=== PATIENT | female | born 1955 | race Caucasian/White ===

== ENCOUNTER 2016-12-09 07:21 | Inpatient (IN) | payer OTHER ==
--- NOTE | 2016-12-06 10:39 | HP ---
DATE OF CLINIC: 11/27/2016 KAYCEE MUHAMMAD : 1955 PLANNED PROCEDURE: Right Total Knee Arthroplasty DATE OF SURGERY: December 09, 2016 SURGEON: Erlin Darling M.D. PCP: Neda Lin N.P. HISTORY OF PRESENT ILLNESS Kaycee Muhammad is a 61 year old female. * Medication list reviewed with patient allergy list reviewed with patient. Mrs. Muhammad is in today pre-operatively for her upcoming right total knee arthroplasty with Dr. Darling on 12/09/16. Patient presents in good spirits and is ready to proceed. She currently has a UTI and is on Macrobid. She denies other illness or change in health. Patient notes she has frequent migraine type headaches and is accustomed to 8-10 Excedrin daily. She's also had headache following remote spinal anesthetic. She also notes post-op nausea with general anesthetic. Her recent consult with Dr. Darling follows: 60-year-old female who I saw initially for consultation in March and then again in June with respect to bilateral knee pain. She has radiographs demonstrating advanced degenerative disease with complete medial joint space loss and varus deformity. Her symptoms have been functionally limiting for her with weight-bearing activities. She has had previous intraarticular corticosteroid initially by Dr. Danielson and then subsequently by me in March with fairly significant, temporary relief. She is also using Tramadol and Meloxicam. Her most significant comorbidity is morbid obesity. She presents today for a 3 month recheck of her weight, discussion of options and repeat scheduled corticosteroid injections. No change in medical condition. At her last appointment in June she had lost approximately 10 pounds. We discussed treatment options, both operative and non-operative, and she has elected to proceed with right TKA. She presents today preoperatively. She has had no recent illnesses. CURRENT MEDICATION * Chlorhexidine Gluconate 0.12 % Solution as directed 16 days, 0 refills * Levothyroxine Sodium 112 MCG Tablet 1 once a day 30 days, 0 refills * Meloxicam 7.5 MG Tablet 1 once a day 0 days, 0 refills * Omeprazole 20 MG Tablet Delayed Release 1 once a day 30 days, 0 refills * Sulfamethoxazole-Trimethoprim 200-40 MG/5ML Suspension as directed 7 days, 0 refills * TraMADol HCl 50 MG Tablet 1 po q 6 hours prn pain, 5 days, 0 refills * Vagifem 10 MCG Tablet as directed 28 days, 0 refills PAST MEDICAL/SURGICAL HISTORY Reported: Medical: A previous fracture in knee at age 15, renal history stones, history of Arthritis, Thyroid Disorder, and Poor healing wounds/lesions abd infection. Surgical / Procedural: Prior surgery thyroid section removed, kidney stones, Cholecystectomy, Caesarean Section 3 times, and Hernia repair. Surgical: * Hysterectomy SOCIAL HISTORY Behavioral: Never smoked. Smoking status: Never smoker. Work: Occupation Retired. ALLERGIES * contrast Reaction: IVP * CT Dye REVIEW OF SYSTEMS Systemic: No fever and no recent weight change. Head: No head symptoms. Cardiovascular: No cardiovascular symptoms. Pulmonary: No pulmonary symptoms. Gastrointestinal: Gastrointestinal symptoms GERD : UTI. Psychological: No psychological symptoms. Skin: No skin lesions and no rash. PHYSICAL FINDINGS * Vitals taken 11/27/2016 11:10 am BP-Sitting R 136/89 mmHg 100 - 120/56 - 80 BP Cuff Size Regular Pulse Rate-Sitting 76 bpm 50 - 100 Temp-Oral 97.4 F 96 - 101 Height 66 in 59 - 68 Weight 255 lbs 96 - 178 Body Mass Index 41.2 kg/m2 Body Surface Area 2.22 m2 Pain Level 1 Ears, Nose, Throat: * ENT: normal. Lungs: * Clear to auscultation. Cardiovascular: Heart Rate and Rhythm: * Normal. Abdomen: * Normal. Neurological: Motor: * Dominant Hand = Right Hand. Patient is an obese female in no acute distress, normal-appearing mood and affect. She ambulates with a slightly wide-based, stiff-legged gait and a difficult time climbing up onto the exam table. On standing she has obvious varus deformity bilaterally. She has poor muscular contour about both thighs. Right knee exam shows skin integrity to be well-preserved, no wounds, rashes or lesions. Mild swelling, no gross effusion. Motion is just shy of full extension to 105 degrees of flexion. She is tender medial greater than lateral, but fairly diffuse. Mild pain with patellar manipulation. Ligamentous exam is intact for cruciates and collaterals. NT over the anteromedial proximal tibia. Calf is soft and NT. Distal light touch sensation and motor function are grossly intact and symmetric. Pulses are palpable. Gentle rotation of the hip is non-irritable without limitation. Left knee exam shows skin integrity to be well-preserved, no wounds, rashes or lesions. Mild swelling, no gross effusion. Motion is just shy of full extension to 110 degrees of flexion. She is tender medial greater than lateral, fairly diffuse. Mild pain with patellar manipulation. Ligamentous exam is intact for cruciates and collaterals. NT over the anteromedial proximal tibia. Calf is soft and NT. Distal light touch sensation and motor function are grossly intact and symmetric. Pulses are palpable. Gentle rotation of the hip is non-irritable. TESTS Radiographs from March 2016, 4 views bilateral knees, show complete medial joint space loss, periarticular sclerosis and associated approximate neutral alignment. Lateral and patellofemoral articulations are relatively well preserved. ASSESSMENT * Localized primary osteoarthritis of the right knee Advanced DJD, right knee. Advanced DJD, left knee. PREVIOUS TESTS * Test: CBC WITH DIFF Report Date: 11/20/2016 WBC 6.8 10*3/mL BASOPHIL 0.7 % RBC 3.92 10*6/uL Low NEUTROPHILS 51.2 % MCH 33.7 pg High MCHC 32.8 g/dL Low RDW 12.9 % MCV 102.8 fL High PLATELET COUNT 281 10*3/mL IMM NEUT % 0.3 % IMM NEUT # 0.0 10*3/mL MONOCYTES 5.6 % EOSINOPHIL 4.4 % High HCT 40.3 % HGB 13.2 g/L LYMPHOCYTE 37.8 % ANC 3.5 10*3/mL * Test: URINALYSIS WITH MICROSCOPIC Report Date: 11/20/2016 EPITHELIAL CELL 2-4 WBC 6-10 GLUCOSE NEGATIVE BACTERIA 2+ PH,URINE 6.0 SPEC. GRAVITY 1.020 KETONE NEGATIVE NITRITE NEGATIVE RBC 0 BLOOD NEGATIVE BILIRUBIN NEGATIVE APPEARANCE CLOUDY PROTEIN NEGATIVE COLOR LISETH LEUK ESTERASE 2+ UROBILINOGEN NORMAL * Test: PROTHROMBIN TIME Report Date: 11/20/2016 PROTIME 10.1 s INR 0.96 * Test: PARTIAL THROMBOPLASTIN TIME Report Date: 11/20/2016 APTT 22.3 s Low * Test: COMPREHENSIVE METABOLIC PANEL Report Date: 11/20/2016 ALT/SGPT 46 U/L ALBUMIN 4.4 g/dL ALB/GLOB RATIO 1.5 BUN 13 mg/dL BUN/CREAT RATIO 16 CALCIUM 9.8 mg/dL GLUCOSE 109 mg/dL High CREATININE 0.8 mg/dL SODIUM 139 meq/L POTASSIUM 4.1 meq/L CHLORIDE 104 meq/L CARBON DIOXIDE 27 meq/L ANION GAP 12 meq/L TOT PROTEIN 7.3 g/dL GLOBULIN 2.9 g/dL BILI,TOTAL 0.3 mg/dL AST/SGOT 35 U/L ALK PHOSPHATASE 71 U/L GFR 73 * Test: URINE CULTURE Report Date: 11/24/2016 URINE CULTURE >100,000 CFU/ML STREPTOCOCCUS AGALACTIAE (GROUP B) BETA * Test: MRSA SCREEN Report Date: 11/21/2016 MRSA SCREEN NEGATIVE * Test: MSSA SCREEN Report Date: 11/21/2016 MSSA SCREEN NEGATIVE FOR STAPHYLOCOCCUS AUREUS * Test: GRAM POS SENSITIVITIES (MARK) Report Date: 11/24/2016 GRAM POS SENSITIVITIES (MARK) HEMOLYTIC S THERAPY * Patient not eligible for fall risk assessment. PLAN * Unilateral primary osteoarthritis, right knee Physical Therapy: *Other * Aftercare following joint replacement surgery TraMADol HCl 50 MG TABS, 1 po q 6 hours prn pain, 5 days, 0 refills OxyCONTIN 10 MG T12A, 1 twice a day, 10 days, 0 refills OxyCODONE HCl 5 MG CAPS, 1or 2 tablets every 4 to 6 hours as needed, 5 days, 0 refills * Total knee arthroplasty -Right Discussed with patient in detail the limitations, expectations as well as risks and possible complications of surgery including, but not limited to wound problems or infection, neurovascular injury, continued knee pain or dysfunction, including the possibility of prosthetic wear or failure over time that may require additional operative or non-operative treatment. Patient also realizes the perioperative risks including risks associated with anesthesia and would like to proceed. A full PAR conference was held, questions and concerns addressed and informed consent was obtained. Patient will be sent from my office for completion of the preoperative workup. Pre-surgery UA if symptomatic [facility] consult for perioperative medical management. Patient will use aspirin 325mg daily for 6 weeks postoperatively for DVT prophylaxis. Patient would like to perform their postop PT at [facility] in [place] with right total knee arthroplasty protocol. CARE TEAM NIKOLAY Elkins CC: NIKOLAY Elkins PT [place] RS/sg
[~2016-12-09 07:21] MED LIST: IV START KIT ONE; LACTATED RINGERS 1,000 ML ONE
[2016-12-09] MEDS ORDERED: PROPOFOL 20 ML IV ONE ×6 (07:40→11:54)
[2016-12-09] MEDS ORDERED: LIDOCAINE 2% (PRES FREE) 5 ML VIAL ONE (07:40)
[2016-12-09] MEDS ORDERED: CELECOXIB 200 MG CAPSULE PO ONE (07:45)
[2016-12-09] MEDS ORDERED: GABAPENTIN 600 MG TABLET PO ONE (07:45)
[2016-12-09] MEDS ORDERED: OXYCODONE HCL 10 MG TAB.SR PO ONE ×2 (07:45→08:19)
[2016-12-09] MEDS ORDERED: CEFAZOLIN SODIUM 2 GRAM PREMIX 100 ML IV PRN (07:45)
[2016-12-09] MEDS ORDERED: TRAMADOL HCL 50 MG TABLET PO ONE (07:45)
[2016-12-09] MEDS ORDERED: FAMOTIDINE 20 MG TABLET PO ONE (07:45)
[2016-12-09] MEDS ORDERED: CLONIDINE HCL 0.1 MG/24 HR (7 DAY PATCH) TD SCH (07:45)
[2016-12-09] MEDS ORDERED: ONDANSETRON 4 MG/2ML 2 ML VIAL IV ONE (07:45)
[2016-12-09] MEDS ORDERED: ROPIVACAINE 0.2% 20 ML VIAL ONE (08:14)
[2016-12-09] MEDS ORDERED: SPINAL PROCEDURAL TRAY 1 EACH ONE (08:14)
[2016-12-09] MEDS ORDERED: NERVE BLOCK PROCEDURAL TRAY 1 EACH ONE (08:15)
[2016-12-09] MEDS ORDERED: TRAMADOL HCL 50 MG TABLET ONE (08:19)
[2016-12-09] MEDS ORDERED: CLONIDINE HCL 0.1 MG/24 HR (7 DAY PATCH) TD ONE (08:19)
[2016-12-09] MEDS ORDERED: FAMOTIDINE 20 MG TABLET ONE (08:19)
[2016-12-09] MEDS ORDERED: ONDANSETRON 4 MG/2ML 2 ML VIAL ONE (08:19)
[2016-12-09] MEDS ORDERED: GABAPENTIN 600 MG TABLET ONE (08:19)
[2016-12-09] MEDS ORDERED: CELECOXIB 200 MG CAPSULE ONE (08:20)
[2016-12-09] MEDS ORDERED: MIDAZOLAM HCL 5 MG/5 ML VIAL ONE (08:32)
[2016-12-09] MEDS ORDERED: FENTANYL 250 MCG/5 ML AMP ONE (08:33)
[2016-12-09] MEDS ORDERED: BUPIVACAINE 0.25% (MDV) 20 ML in SODIUM CHLORIDE 0.9% FLUSH 20 ML IF PRN (09:40)
[2016-12-09] MEDS ORDERED: BUPIVACAINE 0.25% (MDV) 24 ML, MORPHINE SULFATE 8 MG, EPINEPHRINE 0.3 MG in SODIUM CHLO... IF PRN (09:40)
[2016-12-09] MEDS ORDERED: POLYMYXIN B SULFATE 500,000 UNITS, BACITRACIN 25,000 UNITS in SODIUM CHLORIDE 3 L IRRIG... IR PRN (09:40)
[2016-12-09] MEDS ORDERED: TRANEXAMIC ACID 1,000 MG in SODIUM CHLORIDE 0.9% 100 ML IV PRN (09:40)
[2016-12-09] MEDS ORDERED: MIDAZOLAM HCL 1 MG/ML 2ML VIAL ONE (09:58)
[2016-12-09] MEDS ORDERED: DEXAMETHASONE SOD PHOS 4 MG/1 ML VIAL ONE (10:33)
[2016-12-09] MEDS ORDERED: DIPHENHYDRAMINE HCL 50 MG/1 ML VIAL ONE (10:33)
[2016-12-09] MEDS ORDERED: PROMETHAZINE HCL 25 MG/ML VIAL IM PRN (10:44)
[2016-12-09] MEDS ORDERED: ONDANSETRON 4 MG/2ML 2 ML VIAL IV PRN ×2 (10:44→13:55)
[2016-12-09] MEDS ORDERED: ATROPINE SULFATE 0.4 MG/1 ML VIAL IV PRN (10:44)
[2016-12-09] MEDS ORDERED: HYDROMORPHONE HCL 1 MG/ML SYRINGE IV PRN (10:44)
[2016-12-09] MEDS ORDERED: ON-Q PUMP/ROPIVACAINE 0.2% 450 ML in PREMIX BAG 1 EACH NB PRN (10:44)
[2016-12-09] MEDS ORDERED: NALOXONE HCL 0.4 MG/ML VIAL IV PRN (10:44)
[2016-12-09] MEDS ORDERED: LACTATED RINGERS 1,000 ML IV SCH (10:45)
[2016-12-09] MEDS ORDERED: EPHEDRINE SULFATE UD SYR 25 MG 25 MG/5 ML SYRINGE IV ONE (10:56)
[2016-12-09 11:55] LABS: URINE BILIRUBIN NEGATIVE (NEGATIVE); URINE BLOOD NEGATIVE (NEGATIVE); URINE GLUCOSE (UA) NEGATIVE (NEGATIVE); URINE LEUKOCYTE ESTERASE 1+ (NEGATIVE); URINE NITRITE NEGATIVE (NEGATIVE); URINE PROTEIN NEGATIVE (NEGATIVE); URINE UROBILINOGEN NORMAL (0-1 mg/dl)
[2016-12-09 11:57] LABS: URINE APPEARANCE CLEAR; URINE COLOR YELLOW
[2016-12-09 12:08] LABS: URINE BACTERIA 1+
[2016-12-09] MEDS ORDERED: ON-Q PUMP/ROPIVACAINE 0.2% 450 ML ONE (12:31)
--- NOTE | 2016-12-09 12:56 | PCMBPN ---
Brief Post Op Note: Date of Procedure: 12/09/16 Preoperative Diagnosis: DJD right knee Postoperative Diagnosis: 1. [Same] Procedure: right TKA Surgeon: Erlin Darling MD Assist: Jessica (CHANG) Anesthesia: spinal (Aleyda) Findings: medial DJD Condition: stable to PAR Complications: none IV Fluids: 2200 mLs of LR Urine Output: 300 mLs Estimated Blood Loss: 150 mLs Tourniquet Time: ~40 minutes Specimens: none Implants: Attune Drains: none
[2016-12-09] MEDS ORDERED: FENTANYL 100 MCG/2 ML VIAL ONE (13:04)
[2016-12-09] MEDS: FENTANYL 100 MCG/2 ML VIAL IV PRN ×2 (13:08→13:17)
[2016-12-09] MEDS ORDERED: HYDROMORPHONE HCL 1 MG/ML SYRINGE ONE (13:34)
--- NOTE | 2016-12-09 13:34 | RAD ---
Exam: Two-view right knee COMPARISON: 04/02/2016 INDICATION: Postop knee. Findings: AP and crosstable lateral views of the right knee were obtained. Postsurgical changes of total right knee arthroplasty are appreciated. No pericomponent fracture is identified. Alignment is normal. IMPRESSION: Expected postoperative appearance following total right knee arthroplasty.
[2016-12-09] MEDS ORDERED: CALCIUM CARBONATE 500 MG TAB.CHEW PO PRN (13:55)
[2016-12-09] MEDS ORDERED: HYDROMORPHONE HCL 0.5 MG/0.5 ML SYRINGE IV PRN (13:55)
[2016-12-09] MEDS ORDERED: TEMAZEPAM 15 MG CAPSULE PO PRN (13:55)
[2016-12-09] MEDS ORDERED: PUMP TUBING ONE (14:44)
[2016-12-09] MEDS: KETOROLAC TROMETHAMINE 30 MG/ML 1 ML VIAL IV PRN ×2 (14:48→20:30)
[2016-12-09] MEDS: D5 1/2NS with 20 mEq KCL 1,000 ML IV SCH ×2 (14:49→23:46)
[2016-12-09 15:28] VITALS: BMI 42.2
[2016-12-09] MEDS: RIZATRIPTAN BENZOATE 10 MG PO PRN (17:45)
[2016-12-09] MEDS: ACETAMINOPHEN 500 MG TABLET PO SCH ×2 (17:45→20:38)
[2016-12-09] MEDS: CEFAZOLIN SODIUM 1 GRAM PREMIX 1 G in Premix (D5W) 50 ml 1 EACH IV SCH (18:09)
[2016-12-09] MEDS ORDERED: PROMETHAZINE HCL 6.25 MG in SODIUM CHLORIDE 0.9% 50 ML IV PRN (18:18)
[2016-12-09] MEDS: DOCUSATE SODIUM 100 MG CAPSULE PO SCH (21:53)
[2016-12-09] MEDS: ASCORBIC ACID 500 MG TABLET PO SCH (21:53)
[2016-12-10] MEDS: ACETAMINOPHEN 500 MG TABLET PO SCH ×3 (01:01→15:26)
[2016-12-10] MEDS: KETOROLAC TROMETHAMINE 30 MG/ML 1 ML VIAL IV PRN ×2 (02:36→08:49)
[2016-12-10] MEDS: CEFAZOLIN SODIUM 1 GRAM PREMIX 1 G in Premix (D5W) 50 ml 1 EACH IV SCH (02:37)
[2016-12-10] MEDS: RIZATRIPTAN BENZOATE 10 MG PO PRN (05:57)
[2016-12-10] MEDS: D5 1/2NS with 20 mEq KCL 1,000 ML IV SCH ×3 (06:00→22:16)
[2016-12-10 06:16] LABS: HEMOGLOBIN 10.8 gm/l (12.0-16.0); MEAN CELL VOLUME 102.5 fl (81.0-99.0); MEAN CORPUSCULAR HEMOGLOBIN 33.5 pg (27.0-31.0); MEAN CORPUSCULAR HGB CONC 32.7 g/dl (33.0-37.0); RED CELL DISTRIBUTION WIDTH 12.7 % (11.5-14.5)
[2016-12-10 06:29] LABS: CALCIUM 8.8 mg/dL (8.6-10.3)
[2016-12-10] MEDS: LEVOTHYROXINE SODIUM 112 MCG TABLET PO SCH (07:24)
[2016-12-10] MEDS ORDERED: REMOVE PATCH 1 EACH UNIT TD SCH (07:45)
[2016-12-10] MEDS: ASPIRIN (ENTERIC COATED) 325 MG TABLET.EC PO SCH (08:52)
[2016-12-10] MEDS: DOCUSATE SODIUM 100 MG CAPSULE PO SCH ×2 (08:52→20:22)
[2016-12-10] MEDS: MULTIVITAMINS 1 TAB TABLET PO SCH (08:53)
[2016-12-10] MEDS: MELOXICAM 7.5 MG TABLET PO SCH (08:53)
[2016-12-10] MEDS: PANTOPRAZOLE 40 MG TABLET DR PO SCH (08:53)
[2016-12-10] MEDS: ASCORBIC ACID 500 MG TABLET PO SCH ×2 (08:54→20:22)
[2016-12-10] MEDS ORDERED: OMEPRAZOLE 20 MG CAPSULE.DR PO SCH (09:00)
--- NOTE | 2016-12-10 09:41 | PDOC43 ---
- Subjective Findings: Pt seen this morning awake and doing fair. She has been having pain and has significant intolerance to narcotics. N/V last evening but has been better this am. She has been up with PT. Subjective: Reports Flatus, Reports Nausea, Reports Vomiting, Denies Pain Tolerable, Denies Chest Pain, Denies Shortness of Breath, Denies Fever - Objective Vital Signs Temperature 98.2 F 12/10/16 07:59 Pulse Rate 78 12/10/16 07:59 Respiratory Rate 20 12/10/16 07:59 Blood Pressure 111/68 12/10/16 07:59 O2 Saturation by Pulse Oximetry 97 12/10/16 07:59 Oxygen Delivery Method Room Air Oxygen Flow Rate 0 Laboratory 12/10/16 05:45 12/10/16 05:45 12/10/16 05:45 RBC 3.22 L MCV 102.5 H MCH 33.5 H MCHC 32.7 L Estimated GFR 101 H Active Medication Orders Category Date Time Status Acetaminophen [Tylenol] Med 12/09/16 14:00 Active 1,000 mg PO Q6H Ascorbic Acid [Vitamin C] Med 12/09/16 21:00 Active 500 mg PO BID Aspirin (Enteric Coated) [Ecotrin] Med 12/10/16 09:00 Active 325 mg PO DAILY Bisacodyl [Dulcolax] Med 12/12/16 12:49 Active 10 mg AK DAILY PRN Calcium Carbonate [Tums] Med 12/09/16 13:55 Active 1,000 - 2,000 mg PO Q2H PRN D5 1/2NS with 20 mEq KCL [D51/2NS with 20 mEq KCL] 1, Med 12/09/16 13:55 Active 000 ml IV 125 mls/hr Docusate Sodium [Colace] Med 12/09/16 21:00 Active 100 mg PO BID Hydrocodone Bit/Acetaminophen [[place] 7.5/325] Med 12/09/16 13:55 Active 0.5 - 2 tab PO Q4H PRN Hydromorphone HCl [Dilaudid] Med 12/09/16 13:55 Active 0.5 mg IV Q1H PRN Ketorolac Tromethamine [Toradol] Med 12/09/16 13:55 Active 30 mg IV Q6H PRN Levothyroxine Sodium [Levothroid] Med 12/10/16 07:30 Active 112 mcg PO QAMAC Magnesium Hydroxide [Milk of Magnesia] Med 12/10/16 12:49 Active 30 ml PO DAILY PRN Meloxicam [Mobic] Med 12/10/16 09:00 Active 7.5 mg PO DAILY Multivitamins [One-A-Day] Med 12/10/16 09:00 Active 1 tab PO DAILY On-Q Pump/Ropivacaine 0.2% 450 ml Med 12/09/16 13:55 Active Premix Bag [Premix Fluid] 1 each NB Q50H Ondansetron 4 mg/2ml Vial [Zofran] Med 12/09/16 13:55 Active 4 - 6 mg IV Q6H PRN Pantoprazole Sodium [Protonix] Med 12/10/16 09:00 Active 40 mg PO DAILY Promethazine HCl [Phenergan] 6.25 mg Med 12/09/16 18:18 Active Sodium Chloride 0.9% 50 ml IV Q4H Remove Patch Med 12/10/16 12:49 Once 1 each TD X1 ONE Rizatriptan Benzoate [Maxalt 10 mg tablet] Med 12/09/16 13:55 Active 10 mg PO Q6-8H PRN Sodium Chloride 0.9% Flush [Normal Saline 10ml Flush] Med 12/09/16 13:55 Active 10 - 50 ml IV PRN PRN Sodium Chloride 0.9% Flush [Normal Saline 10ml Flush] Med 12/10/16 09:00 Active 10 ml IV Q8HR Temazepam [Restoril] Med 12/09/16 13:55 Active 15 mg PO BEDTIME PRN Tramadol HCl [Ultram] Med 12/09/16 13:55 Active 50 mg PO Q6H PRN Intake and Output 12/08/16 12/09/16 12/10/16 23:59 23:59 23:59 Intake Total 2600 2271 Output Total 1185 1950 Balance 1415 321 General: Afebrile HEENT: Atraumatic Lungs: Normal Air Movement Abdomen: Non-Distended Skin: Normal Color Neurological: Alert, Oriented x 4 - Right Lower Extremity Incision: Dressing Clean/Dry/Intact Motor: Extensor Hallucis Longus: 5/5, Tibialis Anterior: 5/5, Gastrocnemius: 5/5 , Peroneals: 5/5, Quadriceps: 2/5 Gross Sensation to Light Touch: Present: Deep Peroneal Nerve, Superficial Peroneal Nerve Capillary Refill: < 3 Seconds Motion: Calf soft NT Rom knee 0- 45 Mod assist with SLR - Problems (1) Status post right knee replacement Status: AcuteAssessment/Plan: Pod #1 1. Physical Therapy:Mobilize with PT/ OT. Encouraged bed exercise 2. Pain Control:Per orders. Will keep the nerve cath at 8ml/hr 3. DVT Prophylaxis:ASA, foot pumps and mobility 4. Disposition:Doing fair 5. Medical Issues: Pain control will be an issue. Anemia secondary to surgery - asymptomatic will repeat h/h in am
[2016-12-10] MEDS: HYDROcodone/ACETAM 7.5/325MG TABLET PO PRN ×4 (12:13→23:53)
[2016-12-10] MEDS: ON-Q PUMP/ROPIVACAINE 0.2% 450 ML in PREMIX BAG 1 EACH NB PRN ×2 (12:14→17:52)
[2016-12-10] MEDS ORDERED: REMOVE PATCH 1 EACH UNIT TD ONE (12:49)
[2016-12-10] MEDS ORDERED: MAGNESIUM HYDROXIDE 30 ML UDCUP PO PRN (12:49)
[2016-12-10] MEDS: TRAMADOL HCL 50 MG TABLET PO PRN ×2 (17:32→23:49)
[2016-12-10] MEDS: CLOTRIMAZOLE 10 MG TROCHE PO SCH (20:22)
[2016-12-10] MEDS: CEPHALEXIN 500 MG CAPSULE PO SCH (20:22)
[2016-12-11] MEDS: CLOTRIMAZOLE 10 MG TROCHE PO SCH ×6 (00:24→23:55)
[2016-12-11] MEDS ORDERED: KETOROLAC TROMETHAMINE 30 MG/ML 1 ML VIAL IV ONE (00:48)
[2016-12-11] MEDS ORDERED: HYDROXYZINE PAMOATE 50 MG CAPSULE ONE (00:54)
[2016-12-11] MEDS: HYDROXYZINE PAMOATE 25 MG CAPSULE PO PRN ×5 (00:59→23:54)
[2016-12-11] MEDS: HYDROcodone/ACETAM 7.5/325MG TABLET PO PRN ×6 (04:02→23:54)
[2016-12-11] MEDS: TRAMADOL HCL 50 MG TABLET PO PRN ×4 (06:27→23:54)
[2016-12-11 06:57] LABS: HEMATOCRIT 32.7 % (37.0-47.0); HEMOGLOBIN 10.8 gm/l (12.0-16.0)
[2016-12-11] MEDS: LEVOTHYROXINE SODIUM 112 MCG TABLET PO SCH (07:45)
--- NOTE | 2016-12-11 07:47 | PDOC43 ---
- Subjective Findings: Pt seen this am. She is awake and states she had a rough night with pain. Seems better now after a dose of toradol during the night. Subjective: Reports Pain Tolerable, Reports Nausea, Denies Chest Pain, Denies Shortness of Breath, Denies Vomiting - Objective Vital Signs Temperature 98.9 F 12/11/16 03:15 Pulse Rate 84 12/11/16 03:15 Respiratory Rate 18 12/11/16 03:15 Blood Pressure 140/82 12/11/16 03:15 O2 Saturation by Pulse Oximetry 98 12/11/16 03:15 Oxygen Delivery Method Room Air Oxygen Flow Rate 0 Laboratory 12/11/16 06:15 12/10/16 05:45 Active Medication Orders Category Date Time Status Ascorbic Acid [Vitamin C] Med 12/09/16 21:00 Active 500 mg PO BID Aspirin (Enteric Coated) [Ecotrin] Med 12/10/16 09:00 Active 325 mg PO DAILY Bisacodyl [Dulcolax] Med 12/12/16 12:49 Active 10 mg SC DAILY PRN Calcium Carbonate [Tums] Med 12/09/16 13:55 Active 1,000 - 2,000 mg PO Q2H PRN Cephalexin [Keflex] Med 12/10/16 21:00 Active 500 mg PO QID Clotrimazole [Mycelex Love] Med 12/10/16 21:00 Active 10 mg PO PID Docusate Sodium [Colace] Med 12/09/16 21:00 Active 100 mg PO BID Hydrocodone Bit/Acetaminophen [[place] 7.5/325] Med 12/09/16 13:55 Active 0.5 - 2 tab PO Q4H PRN Hydromorphone HCl [Dilaudid] Med 12/09/16 13:55 Active 0.5 mg IV Q1H PRN Hydroxyzine Pamoate [Vistaril] Med 12/11/16 00:48 Active 25 - 50 mg PO Q4H PRN Levothyroxine Sodium [Levothroid] Med 12/10/16 07:30 Active 112 mcg PO QAMAC Magnesium Hydroxide [Milk of Magnesia] Med 12/10/16 12:49 Active 30 ml PO DAILY PRN Meloxicam [Mobic] Med 12/10/16 09:00 Active 7.5 mg PO DAILY Multivitamins [One-A-Day] Med 12/10/16 09:00 Active 1 tab PO DAILY On-Q Pump/Ropivacaine 0.2% 450 ml Med 12/09/16 13:55 Active Premix Bag [Premix Fluid] 1 each NB Q50H Ondansetron 4 mg/2ml Vial [Zofran] Med 12/09/16 13:55 Active 4 - 6 mg IV Q6H PRN Pantoprazole Sodium [Protonix] Med 12/10/16 09:00 Active 40 mg PO DAILY Promethazine HCl [Phenergan] 6.25 mg Med 12/09/16 18:18 Active Sodium Chloride 0.9% 50 ml IV Q4H Rizatriptan Benzoate [Maxalt 10 mg tablet] Med 12/09/16 13:55 Active 10 mg PO Q6-8H PRN Sodium Chloride 0.9% Flush [Normal Saline 10ml Flush] Med 12/09/16 13:55 Active 10 - 50 ml IV PRN PRN Sodium Chloride 0.9% Flush [Normal Saline 10ml Flush] Med 12/10/16 09:00 Active 10 ml IV Q8HR Temazepam [Restoril] Med 12/09/16 13:55 Active 15 mg PO BEDTIME PRN Tramadol HCl [Ultram] Med 12/09/16 13:55 Active 50 mg PO Q6H PRN Intake and Output 12/09/16 12/10/16 12/11/16 23:59 23:59 23:59 Intake Total 2600 3693 1155 Output Total 1185 4700 450 Balance 1415 -1007 705 General: Afebrile HEENT: Atraumatic Lungs: Normal Air Movement Abdomen: Non-Distended Skin: Normal Color Neurological: Alert, Oriented x 4 - Right Lower Extremity Motor: Extensor Hallucis Longus: 5/5, Tibialis Anterior: 5/5, Gastrocnemius: 5/5 , Peroneals: 5/5, Quadriceps: 2/5 Gross Sensation to Light Touch: Present: Deep Peroneal Nerve, Superficial Peroneal Nerve Capillary Refill: < 3 Seconds Motion: Calf soft NT Rom knee 0-50 Mod assist with SLR - Problems (1) Status post right knee replacement Status: AcuteAssessment/Plan: Pod #2 1. Physical Therapy:Mobilize with PT/ OT. Encouraged bed exercise 2. Pain Control:Per orders. Will keep the nerve cath at 10-12ml/hr. Will consult with Anesthesia about refill of pump 3. DVT Prophylaxis:ASA, foot pumps and mobility 4. Disposition:Doing fair 5. Medical Issues: Pain control will be an issue. Anemia secondary to surgery - asymptomatic. Will need better pain relief if she is to discharge today.
[2016-12-11] MEDS: PANTOPRAZOLE 40 MG TABLET DR PO SCH (09:54)
[2016-12-11] MEDS: MELOXICAM 7.5 MG TABLET PO SCH (09:54)
[2016-12-11] MEDS: ASPIRIN (ENTERIC COATED) 325 MG TABLET.EC PO SCH (09:54)
[2016-12-11] MEDS: ASCORBIC ACID 500 MG TABLET PO SCH ×2 (09:54→20:13)
[2016-12-11] MEDS: MULTIVITAMINS 1 TAB TABLET PO SCH (09:54)
[2016-12-11] MEDS: DOCUSATE SODIUM 100 MG CAPSULE PO SCH ×2 (09:54→20:13)
[2016-12-11] MEDS: CEPHALEXIN 500 MG CAPSULE PO SCH ×4 (09:56→20:13)
[2016-12-11] MEDS: ON-Q PUMP/ROPIVACAINE 0.2% 450 ML in PREMIX BAG 1 EACH NB PRN (17:49)
[2016-12-12] MEDS: HYDROcodone/ACETAM 7.5/325MG TABLET PO PRN ×2 (04:16→08:49)
[2016-12-12] MEDS: TRAMADOL HCL 50 MG TABLET PO PRN ×2 (05:09→11:04)
[2016-12-12] MEDS: HYDROXYZINE PAMOATE 25 MG CAPSULE PO PRN ×2 (05:10→11:28)
[2016-12-12 06:37] LABS: HEMATOCRIT 32.8 % (37.0-47.0); HEMOGLOBIN 10.9 gm/l (12.0-16.0)
[2016-12-12] MEDS: CLOTRIMAZOLE 10 MG TROCHE PO SCH (07:13)
[2016-12-12] MEDS: LEVOTHYROXINE SODIUM 112 MCG TABLET PO SCH (07:13)
[2016-12-12 07:58] VITALS: BP 122/81
[2016-12-12] MEDS: DOCUSATE SODIUM 100 MG CAPSULE PO SCH (08:47)
[2016-12-12] MEDS: MELOXICAM 7.5 MG TABLET PO SCH (08:48)
[2016-12-12] MEDS: ASPIRIN (ENTERIC COATED) 325 MG TABLET.EC PO SCH (08:48)
[2016-12-12] MEDS: ASCORBIC ACID 500 MG TABLET PO SCH (08:49)
[2016-12-12] MEDS: PANTOPRAZOLE 40 MG TABLET DR PO SCH (08:49)
[2016-12-12] MEDS: MULTIVITAMINS 1 TAB TABLET PO SCH (08:49)
[2016-12-12] MEDS: CEPHALEXIN 500 MG CAPSULE PO SCH (10:00)
--- NOTE | 2016-12-12 10:55 | OP ---
KRISTYN GARCIA [id number] : 1955 PREOPERATIVE DIAGNOSIS: Degenerative joint disease right knee POSTOPERATIVE DIAGNOSIS: Same PROCEDURE: Right Total Knee Arthroplasty COMPONENTS: Attune size 6 posterior stabilized cemented femoral component, size 5 cemented tibial base plate, 5mm posterior stabilized RP insert, 35mm anatomic patella. SURGEON: Erlin Darling M.D. NEWSPAPER PHOTO EDITOR: Jessica PEPPER) ANESTHESIA: Spinal plus adductor nerve block per Aleyda ESTIMATED BLOOD LOSS: 150 cc IV FLUID REPLACEMENT: per anesthesia, 2.2 liters crystalloid URINE OUTPUT: 300 cc DRAINS: NONE TOURNIQUET TIME: Approximately 40 minutes COMPLICATIONS: None HISTORY: Briefly, patient is a 61-year-old female with clinical and radiographic evidence of advanced degenerative disease of their right knee. They have failed traditional non-operative management and desire elective total knee arthroplasty. For additional details, please refer to the previously dictated Preoperative History and Physical Examination. A PAR conference was held, questions and concerns were addressed, and informed consent was obtained. FINDINGS: Tricompartmental changes most notable medially with significant medial tibial wear as well as eburnated medial femoral condylar surface. PROCEDURE: The patient was taken to the operating room after the placement of a spinal anesthetic and regional nerve block. They were placed supine on the operating room table, a tourniquet was applied to the proximal thigh and the right lower extremity was prepped and draped out in the usual sterile fashion. Preoperative IV antibiotics were given empirically. Intraoperative DVT prophylaxis consisted of contralateral foot pumps. Personal filtration suits were used as was a closed room environment. A WHO timeout was taken. Surgical site identified and confirmed. The leg was then elevated and the tourniquet inflated after gravity exsanguination. This was dropped after exposure and not used again until cementation. Tranexamic acid was infiltrated over 10 minutes prior to incision, 1 gram dose per protocol. A similar 2nd dose was given at initiation of closure. With the knee flexed, an anteromedial incision was made from the level of the tibial tubercle to two centimeters proximal to the superior pole of the patella. A medial arthrotomy was performed with a mini-mid vastus approach. A medial subperiosteal proximal tibial release was performed and a portion of the anterior fat pad was excised to improve visualization. The supra-patellar pouch was raised subperiosteally. The anterior and posterior cruciate ligaments were excised as were the remaining portions of the anterior horns of the medial and lateral menisci. Minimally invasive instrumentation and philosophy were used throughout the procedure in an attempt to decrease the extent of soft tissue disruption/damage. Following exposure the tourniquet was released left down until cementation. The intramedullary femoral drill was passed followed by the intramedullary alignment ana with the 5 degree valgus bushing. We made our distal femoral cut flush with the sulcus as per our preoperative plan. Residual marginal osteophytes were removed. Attention was then directed to the tibia which was retracted anteriorly. Remaining meniscal tissue was excised. The extramedullary tibial alignment jig was placed and the proximal tibial cut made as per our preoperative plan perpendicular to the long axis of the tibia. We then confirmed the appropriateness of the extension gap. Following this, we returned attention to the femur with application of the sizer and the 3 degree external rotation jig. The corresponding 4-1 cutting block was positioned and we made the anterior and posterior condylar cuts followed by the chamfer cuts. The flexion and extension gaps were then balanced by removal of residual posteromedial and posterolateral femoral osteophytes under direct visualization. We then turned our attention back to the tibia and completed our tibial preparation. We trialed this for best bony coverage. We then placed the guide followed by reamer and tibial punch. We then completed the femoral preparation by cutting the notch. Femoral trial component was placed as was tibial insert. We were able to obtain full extension with nice roll back and good coronal plane alignment and stability. The patella tracked well and was prepared using the Brooks patellar reaming system removing 9 mm. of bone. Osteophytes were removed prior to this with a rongeur and we performed a circumferential limited denervation using cautery. This was sized accordingly and punch holes were drilled. The knee was then re-exsanguinated and the tourniquet inflated. Double antibiotic pulsatile lavage was used to irrigate the knee and clean the cancellous augusto interstices which were then carefully dried. The first periarticular injection was given, per protocol, of the posterior capsule, posteromedial knee and synovium. Two doses of high viscosity, antibiotic impregnated, methylene blue-stained, polymethylmethacrylate were used to cement the femoral, tibial, and then patellar components. The knee was held in extension while the cement cured. All residual methacrylate was meticulously removed. Attention was then directed towards closure. We irrigated and the retinaculum was closed with a running #2 absorbable StratoFix suture. The 2nd periarticular injection was given, per protocol, anteromedially in the pes anserine, the extensor mechanism and IT band. The repair was checked in maximum flexion. We then lightly irrigated the subcutaneous tissue and closed with interrupted 2-0 and 3-0 Vicryl. The skin was then re-approximated with a running 4-0 subcuticular Monocryl followed by Dermabond Prineo. A sterile compression dressing was applied. The patient was then transferred to their hospital bed and sent to the post anesthesia recovery room in stable condition. They tolerated the procedure well. Sponge, instrument, and needle count were correct. CC: Neda Franco
[2016-12-12] MEDS ORDERED: BISACODYL 10 MG SUP PR PRN (12:49)
--- NOTE | 2016-12-16 17:47 | DS ---
Kaycee GARCIA [id number] : 1955 DATE OF ADMISSION: December 09, 2016 DATE OF DISCHARGE: December 12, 2016 DISCHARGE DIAGNOSES: Right knee degenerative joint disease. HOSPITAL PROCEDURES: Right total knee arthroplasty. SURGEON: Erlin Darling M.D. BRIEF HISTORY: Patient is a 61-year-old female with both clinical and radiographic evidence of advanced DJD of their right knee. For the full history please see the chart note. BRIEF HOSPITAL COURSE: Patient was admitted on December 09, 2016. Dr. Erlin Darling performed a right total knee arthroplasty. They were moved to the recovery room in stable condition. They were given 4 doses of antibiotic for empiric coverage. DVT prophylaxis consisted of aspirin 325 mg daily, pneumatic compression, TEJAS hose and mobility. PT was instituted postop day 1 with right total knee arthroplasty protocol, weightbearing as tolerated. Their incision site remained benign, their vital signs remained stable and they remained neurally and vascularly intact through the duration of the stay. They were discharged home on postop day 3 to continue their outpatient PT at [facility] with right total knee arthroplasty protocol, weightbearing as tolerated. Alhaji Nguyen M.D., consulted to manage perioperative medical comorbidities, for consultation, please see the chart note. DISCHARGE INSTRUCTIONS: 1. Keep the wound site clean. May shower with Aquacel dressing intact. Call office with any questions or concerns and f/u for your dressing change as scheduled 1 week postop. 2. Continue the use of TEJAS hose bilaterally. 3. Cooling unit 3-4 times daily for 30 minutes duration. 4. Outpatient PT at [facility] for right total knee arthroplasty protocol, weightbearing as tolerated. MEDICATIONS: 1. Patient is to resume normal preop medications. 2. Anti-coagulation will be with aspirin 325 mg daily for six weeks. 3. She was also patient who had trouble with pain control, so her bupivacaine reservoir was refilled prior to discharge to continue at an initial rate as 12 mL per hour and taper down as instructed in her discharge paperwork. 4. The patient also received Davenport 7.5/325 mg one to two every 4 to 6 hours. 5. Tramadol 50 mg every six hours as needed. 6. Vistaril 25 mg one to two every 4 to 6 hours for nausea or itching. 7. Patient was also advised on utilization of a multi-vitamin with mineral daily as well as Vitamin C, 500mg daily for 1 month. 8. Patient encouraged to take an iron supplement in the form of ferrous sulfate, 325mg daily for 4 weeks. 9. Colace, 100mg, b.i.d. until regular bowel movement. FOLLOW-UP: Please return to the clinic as scheduled for your first scheduled postop check. Prior to that point in time please call with any questions or concerns. Job [id number] CC: [facility] in [place]
== END 2016-12-12 12:00 | disposition home or self-care (01) | DRG 470 ==
LOC: OR 07:21 → MS 14:21
PROVIDERS: ADMIT Orthopaedic Surgery; ATTEND Orthopaedic Surgery
PROC: 0SRC0J9 Replacement of Right Knee Joint with Synthetic Substitute, Cemented, Open Approach (ICD-10-PCS; principal; 2016-12-09)
DX: M17.11 Unilateral primary osteoarthritis, right knee (principal); D62 Acute posthemorrhagic anemia; N39.0 Urinary tract infection, site not specified; Z68.41 Body mass index [BMI] 40.0-44.9, adult; M21.161 Varus deformity, not elsewhere classified, right knee; M25.761 Osteophyte, right knee; G43.909 Migraine, unspecified, not intractable, without status migrainosus; E66.01 Morbid (severe) obesity due to excess calories; K21.9 Gastro-esophageal reflux disease without esophagitis; Z88.5 Allergy status to narcotic agent; Z91.041 Radiographic dye allergy status